=== PATIENT | male | born 1990 | race American Indian/Alaskan Native ===

== ENCOUNTER 2017-01-01 18:29 | Emergency (ER) | payer SELFPAY ==
[2017-01-01 18:37] VITALS: TEMP 98.7; O2SAT 98
[2017-01-01 19:10] VITALS: BMI 23.1
--- NOTE | 2017-01-01 19:32 | C.PDOC ---
History Of Present Illness 26 year old patient presents to the ED complaining of left eye redness for the past 2 days. Patient notes there is white discharge that is crusting. Patient denies fever or blurry vision. Time Seen by Provider: 01/01/17 19:06 Chief Complaint (Nursing): Eye Problem History Per: Patient History/Exam Limitations: no limitations Onset/Duration Of Symptoms: Days (2) Current Symptoms Are (Timing): Still Present Injury To Eye?: No Severity: Mild Pain Scale Rating Of: 3 Associated Symptoms: Discharge From Eye Recent travel outside of the [place]: No Past Medical History Reviewed: Historical Data, Nursing Documentation, Vital Signs Vital Signs: Last Vital Signs Temp 98.7 F 01/01/17 18:36 Pulse 100 H 01/01/17 18:36 Resp 20 01/01/17 18:36 BP 111/73 01/01/17 18:36 Pulse Ox 98 01/01/17 19:36 Family History: States: Unknown Family Hx - Social History Hx Alcohol Use: No Hx Substance Use: No - Immunization History Hx Tetanus Toxoid Vaccination: Yes Hx Influenza Vaccination: Yes Hx Pneumococcal Vaccination: Yes Review Of Systems Except As Marked, All Systems Reviewed And Found Negative. Constitutional: Negative for: Fever Eyes: Positive for: Redness (left). Negative for: Vision Change Physical Exam - Physical Exam Appears: Non-toxic, No Acute Distress Skin: Warm, Dry Head: Atraumatic, Normacephalic Eye(s): bilateral: PERRL, EOMI, right: Normal Inspection, left: Other ( conjunctival erythema; discharge in the medial corner of the left eye) Ear(s): Bilateral: Normal Nose: Normal Oral Mucosa: Moist Throat: Normal ED Course And Treatment O2 Sat by Pulse Oximetry: 98 (RA) Pulse Ox Interpretation: Normal Disposition - Disposition Referrals: Francisco Conner MD [Staff Provider] - Disposition: HOME/ ROUTINE Disposition Time: 19:30 Condition: GOOD Additional Instructions: Wash all towels and face cloths with hot soapy water. Do not share towels. Try not to rub right eye. Use medications as directed. [facility]. Prescriptions: Polymyxin/Trimethoprim Sulfate [Polytrim Ophth Soln] 1 drop OS QID #1 bottle Instructions: Conjunctivitis (ED) Forms: General Discharge Instructions, Work Excuse - Clinical Impression Clinical Impression: Conjunctivitis - PA / DIRECTOR OF ASSESSMENT / Resident Statement MD/DO has reviewed & agrees with the documentation as recorded. - Scribe Statement The provider has reviewed the documentation as recorded by the Scribe Tina Dyer All medical record entries made by the Scribe were at my direction and personally dictated by me. I have reviewed the chart and agree that the record accurately reflects my personal performance of the history, physical exam, medical decision making, and the department course for this patient. I have also personally directed, reviewed, and agree with the discharge instructions and disposition.
--- NOTE | 2017-01-01 19:33 | C.PDOC ---
Time Seen by Provider: 01/01/17 19:06 Chief Complaint (Nursing): Eye Problem Past Medical History Vital Signs: Last Vital Signs Temp 98.7 F 01/01/17 18:36 Pulse 100 H 01/01/17 18:36 Resp 20 01/01/17 18:36 BP 111/73 01/01/17 18:36 Pulse Ox 98 01/01/17 18:36 - Social History Hx Alcohol Use: No Hx Substance Use: No - Immunization History Hx Tetanus Toxoid Vaccination: Yes Hx Influenza Vaccination: Yes Hx Pneumococcal Vaccination: Yes ED Course And Treatment O2 Sat by Pulse Oximetry: 98 Disposition Counseled Patient/Family Regarding: Diagnosis, Need For Followup, Rx Given - Disposition Disposition: HOME/ ROUTINE Disposition Time: 19:30 Condition: GOOD Additional Instructions: Wash all towels and face cloths with hot soapy water. Do not share towels. Try not to rub right eye. Use medications as directed. Follow up in [facility]. Prescriptions: Polymyxin/Trimethoprim Sulfate [Polytrim Ophth Soln] 1 drop OS QID #1 bottle Forms: General Discharge Instructions - Clinical Impression Clinical Impression: Conjunctivitis
[2017-01-01 20:18] VITALS: BP 110/65; PULSE 89; RESP 17
== END 2017-01-01 20:19 | disposition home or self-care (01) ==
LOC: C.ER 18:29
DX: H10.9 Unspecified conjunctivitis (principal)

== ENCOUNTER 2017-05-02 11:00 | Emergency (ER) | payer OTHER ==
[2017-05-02 11:55] VITALS: BMI 25.7
[2017-05-02 11:57] VITALS: RESP 18; TEMP 97.6
--- NOTE | 2017-05-02 13:00 | CT ---
Send PROCEDURE: CT HEAD WITHOUT CONTRAST. HISTORY: Headaches. h/o skull fx years ago. COMPARISON: None available. TECHNIQUE: Axial computed tomography images were obtained through the head/brain without intravenous contrast. Radiation dose: Total exam DLP = 880.20 mGy-cm. This CT exam was performed using one or more of the following dose reduction techniques: Automated exposure control, adjustment of the mA and/or kV according to patient size, and/or use of iterative reconstruction technique. FINDINGS: HEMORRHAGE: No intracranial hemorrhage. BRAIN: No mass effect or edema. No atrophy or chronic microvascular ischemic changes.Please note that MRI with diffusion imaging is more sensitive in the detection of acute ischemic event. VENTRICLES: No hydrocephalus. CALVARIUM: Unremarkable. PARANASAL SINUSES: Unremarkable as visualized. No significant inflammatory changes. MASTOID AIR CELLS: Unremarkable as visualized. No inflammatory changes. OTHER FINDINGS: None. IMPRESSION: No acute intracranial pathology identified.
--- NOTE | 2017-05-02 13:04 | C.PDOC ---
Time Seen by Provider: 05/02/17 12:00 Chief Complaint (Nursing): Headache History Per: Patient Onset/Duration Of Symptoms: Intermittent Episodes, Worse Since (this morning) Current Symptoms Are (Timing): Still Present Severity: Moderate Quality: "Pain" Preceeding Symptoms: None Associated Symptoms: denies: Photophobia, Blurred Vision, Nausea, Vomiting, Extremity Weakness Additional History Per: Prior Records Past Medical History Reviewed: Historical Data, Nursing Documentation, Vital Signs Vital Signs: Last Vital Signs Temp 97.6 F 05/02/17 11:55 Pulse 76 05/02/17 11:55 Resp 18 05/02/17 11:55 BP 121/75 05/02/17 11:55 Pulse Ox 100 05/02/17 11:55 - Medical History PMH: Fractures (Skull fracture in 2007) Surgical History: No Surg Hx Family History: States: Unknown Family Hx - Social History Hx Alcohol Use: No Hx Substance Use: No - Immunization History Hx Tetanus Toxoid Vaccination: Yes Hx Influenza Vaccination: No Hx Pneumococcal Vaccination: No Review Of Systems Except As Marked, All Systems Reviewed And Found Negative. Constitutional: Negative for: Fever, Weakness Eyes: Negative for: Pain, Vision Change Cardiovascular: Negative for: Chest Pain Respiratory: Negative for: Shortness of Breath Gastrointestinal: Negative for: Nausea, Vomiting, Abdominal Pain Musculoskeletal: Negative for: Neck Pain Skin: Negative for: Rash Neurological: Positive for: Headache. Negative for: Weakness, Numbness, Incoordination, Change in Speech, Confusion, Seizures, Altered Mental Status, Dizziness Physical Exam - Physical Exam Appears: Non-toxic, No Acute Distress Skin: Normal Color, Warm, Dry, No Rash Head: Atraumatic, Normacephalic Eye(s): bilateral: Normal Inspection, PERRL, EOMI Neck: Normal ROM, Supple Cardiovascular: Rhythm Regular Respiratory: Normal Breath Sounds, No Accessory Muscle Use Gastrointestinal/Abdominal: Soft, No Tenderness Extremity: Normal ROM Neurological/Psych: Oriented x3, Normal Speech, Normal Cognition, Normal Cranial Nerves, No Cerebellar Signs, Normal Motor, Normal Sensation ED Course And Treatment O2 Sat by Pulse Oximetry: 100 Pulse Ox Interpretation: Normal - CT Scan/US CT head Other Rad Studies (CT/US): Read By Radiologist, Radiology Report Reviewed CT/US Interpretation: IMPRESSION: No acute intracranial pathology identified. Reassessment Condition: Improved Disposition Counseled Patient/Family Regarding: Studies Performed, Diagnosis, Need For Followup, Rx Given - Disposition Referrals: [facility] [Outside] Disposition: HOME/ ROUTINE Disposition Time: 13:04 Condition: IMPROVED Additional Instructions: Follow up in the clinic for further evaluation and treatment. Return to the ER if you develop vomiting, severe headache, weakness, numbness, worsening of symptoms or if you have any other concerns. Prescriptions: Naproxen [Naprosyn] 1 tab PO BID PRN #20 tab PRN Reason: Pain Instructions: General Headache (ED) Forms: [employer] ([place]) - Clinical Impression Clinical Impression: Headache
[2017-05-02 13:11] VITALS: BP 123/79; PULSE 59; O2SAT 99
== END 2017-05-02 13:11 | disposition home or self-care (01) ==
LOC: C.ER 11:00
DX: R51 Headache (principal)

== ENCOUNTER 2017-09-15 13:49 | Emergency (ER) | payer SELFPAY ==
[2017-09-15 13:49] VITALS: BMI 25.7
[2017-09-15 13:56] VITALS: BP 142/85; PULSE 82; TEMP 98.4; O2SAT 98
--- NOTE | 2017-09-15 14:10 | C.PDOC ---
History Of Present Illness 26 year old male presents to the ER complaining of left sided headache which began in the morning. Patient reports that the pain is mild and 5/10 on the pain scale. Patient states that he did not take any medications for the headache. Patient reports that he had similar headaches in the past. Patient denies any visual changes, dizziness, neck pain, and fever. Patient reports that he does have a history of head injury and skull fracture at the age of 16. Time Seen by Provider: 09/15/17 14:02 Chief Complaint (Nursing): Headache History Per: Patient History/Exam Limitations: no limitations Onset/Duration Of Symptoms: Hrs Current Symptoms Are (Timing): Still Present Severity: Moderate Past Medical History Reviewed: Historical Data, Nursing Documentation, Vital Signs Vital Signs: Last Vital Signs Temp 98.4 F 09/15/17 13:55 Pulse 82 09/15/17 13:55 Resp 20 09/15/17 14:33 BP 142/85 09/15/17 13:55 Pulse Ox 98 09/15/17 14:41 - Medical History PMH: Fractures (Skull fracture in 2007) Surgical History: No Surg Hx Family History: States: No Known Family Hx - Social History Hx Alcohol Use: No Hx Substance Use: No - Immunization History Hx Tetanus Toxoid Vaccination: Yes Hx Influenza Vaccination: No Hx Pneumococcal Vaccination: No Review Of Systems Except As Marked, All Systems Reviewed And Found Negative. Constitutional: Negative for: Fever, Chills Eyes: Negative for: Vision Change Gastrointestinal: Negative for: Nausea, Vomiting Musculoskeletal: Negative for: Neck Pain Neurological: Positive for: Headache (left-sided headache). Negative for: Dizziness Physical Exam - Physical Exam Appears: Well, Non-toxic, No Acute Distress Skin: Normal Color, Warm, No Pale, No Rash Head: Atraumatic, Normacephalic, No Tenderness, No Swelling Eye(s): bilateral: Normal Inspection, PERRL, EOMI Ear(s): Bilateral: Normal Nose: Normal Throat: Normal Neck: Normal, Normal ROM, Supple Chest: Symmetrical Cardiovascular: Rhythm Regular Respiratory: Normal Breath Sounds, No Accessory Muscle Use Extremity: Bilateral: Atraumatic, Normal Color And Temperature, Normal ROM Neurological/Psych: Oriented x3, Normal Speech, Normal Cranial Nerves, No Cerebellar Signs, Normal Motor, Normal Sensation Gait: Steady ED Course And Treatment O2 Sat by Pulse Oximetry: 98 (RA) Pulse Ox Interpretation: Normal Medical Decision Making Medical Decision Making: Impression: headache Prior records reviewed: Patient last seen in ED on 05/02/[address] head shows no intracranial pathology identified. Patient treated and discharged with Rx Naproxen. Re-Eval: Patient remained alert and oriented with stable vital signs and no fever. He reports headache has improved. He has no nuchal rigidity or signs of neurological deficits. Disposition Counseled Patient/Family Regarding: Diagnosis, Need For Followup, Rx Given - Disposition Referrals: [facility] [Outside] [facility] [Outside] [facility] [Outside] Disposition: HOME/ ROUTINE Disposition Time: 14:29 Condition: GOOD Additional Instructions: Take Tylenol or Motrin alternating every 6 hours as needed for your headache. Be sure to get adequate rest and drink fluids daily Follow up with your primary doctor. Return to the emergency department at any time if symptoms persist or worsen. Prescriptions: Ibuprofen [Motrin] 600 mg PO Q8 #30 tab Instructions: Acute Headache (DC) Forms: [employer] (Samoan) - POA Present On Arrival: None - Clinical Impression Clinical Impression: Headache - PA / MANDARIN TEACHER / Resident Statement MD/DO has reviewed & agrees with the documentation as recorded. - Scribe Statement The provider has reviewed the documentation as recorded by the Savitaibe Sage Sorensen All medical record entries made by the Savitaibe were at my direction and personally dictated by me. I have reviewed the chart and agree that the record accurately reflects my personal performance of the history, physical exam, medical decision making, and the department course for this patient. I have also personally directed, reviewed, and agree with the discharge instructions and disposition.
[2017-09-15 14:34] VITALS: RESP 20
== END 2017-09-15 14:33 | disposition home or self-care (01) ==
LOC: C.ER 13:49
DX: R51 Headache (principal)